=== PATIENT | male | born 1980 | race American Indian/Alaskan Native ===

== ENCOUNTER 2019-03-26 08:43 | Observation (INO) | payer OTHER ==
[2019-03-26 09:27] LABS: Basophils # (Auto) 0.1 K/mm3 (0.0-0.1); Basophils % (Auto) 0.4 % (0.0-1.8); Eosinophils # (Auto) 0.1 K/mm3 (0.0-0.4); Eosinophils % (Auto) 0.4 % (0.0-4.3); Hemoglobin 14.2 gm/dl (11.8-15.2); Lymphocytes # (Auto) 1.2 K/mm3 (1.2-5.4); Lymphocytes % (Auto) 8.4 % (13.4-35.0); Mean Corpuscular HGB Conc 35 % (32-34); Mean Corpuscular Volume 84 fl (84-94); Monocytes # (Auto) 0.6 K/mm3 (0.0-0.8); Monocytes % (Auto) 4.6 % (0.0-7.3); Platelet Count 201 K/mm3 (140-440); Red Blood Count 4.89 M/mm3 (3.65-5.03); Red Cell Distribution Width 13.3 % (13.2-15.2)
[2019-03-26 09:32] LABS: INR 0.97 (0.87-1.13)
[2019-03-26 09:33] LABS: Partial Thromboplastin Time 24.6 Sec. (24.2-36.6)
[2019-03-26 09:45] LABS: Alanine Aminotransferase 35 units/L (7-56); Albumin 4.2 g/dL (3.9-5); BUN/Creatinine Ratio 9; Blood Urea Nitrogen 8 mg/dL (9-20); Calcium 9.3 mg/dL (8.4-10.2); Hemolysis Index 23
[2019-03-26 09:48] LABS: Creatine Kinase MB 2.4 ng/mL (0.0-4.0)
--- NOTE | 2019-03-26 09:53 | XRay Report ---
CHEST 1 VIEW INDICATION: Chest pain. COMPARISON: None FINDINGS: Support devices: None. Heart: Within normal limits. Lungs/Pleura: No acute air space or interstitial disease. Additional findings: None. IMPRESSION: No acute findings. Signer Name: Trace Costa Jr, MD Signed: 03/26/2019 9:49 AM Workstation Name: [id number]
[2019-03-26] MEDS ORDERED: ATIVAN IV ONE (10:32)
--- NOTE | 2019-03-26 11:28 | Emergency Department Report ---
ED Chest Pain HPI - General Chief Complaint: Chest Pain Stated Complaint: CHEST PAIN Time Seen by Provider: 03/26/19 09:16 Source: EMS Mode of arrival: Stretcher Limitations: No Limitations - History of Present Illness Initial Comments: This is a 38-year-old male complaining of chest pain. He states that it began at about 5:30 this morning. He states that it radiates somewhat to his abdomen and feels dull in nature. He admits to smoking marijuana but not cocaine. He states he's had chest pain like this before but did not seek medical attention. He reports no history of cardiovascular disease, hypertension or venous thromboembolism. A chest states that he was somewhat nauseated and sweaty with this chest pain. He is somewhat emotionally labile on my encounter.He is pulled out his IV several times already. MD Complaint: chest pain -: Gradual Onset: during rest Pain Location: substernal Pain Radiation: abdomen Severity: moderate Quality: dull Consistency: constant Improves With: nothing Worsens With: nothing re: nausea, vomting, other (sweating) Other Symptoms: denies: cough, fever, syncope Treatments Prior to Arrival: none Aspirin use within the Past 7 Days: (0) No - Related Data Allergies Allergy/AdvReac Type Severity Reaction Status Date / Time No Known Allergies Allergy Unverified 03/26/19 08:54 Heart Score - HEART Score History: Slightly suspicious EKG: Normal Age: < 45 Risk factors: 1-2 risk factors Troponin: < normal limit HEART Score: 1 - Critical Actions Critical Actions: 0-3 pts:0.9-1.7%risk of adverse cardiac event.Candidate for discharge ED Review of Systems ROS: Stated complaint: CHEST PAIN Other details as noted in HPI Constitutional: denies: chills, fever Eyes: denies: eye pain, eye discharge, vision change ENT: denies: ear pain, throat pain Respiratory: denies: cough, shortness of breath, wheezing Cardiovascular: chest pain. denies: palpitations Endocrine: no symptoms reported Gastrointestinal: abdominal pain, nausea, vomiting. denies: diarrhea Genitourinary: denies: urgency, dysuria Musculoskeletal: denies: back pain, joint swelling, arthralgia Skin: denies: rash, lesions Neurological: denies: headache, weakness, paresthesias Psychiatric: denies: anxiety, depression Hematological/Lymphatic: denies: easy bleeding, easy bruising ED Past Medical Hx - Past Medical History Previous Medical History?: Yes Additional medical history: ptsd - Surgical History Past Surgical History?: No - Social History Smoking Status: Current Every Day Smoker Substance Use Type: Marijuana ED Physical Exam - General Limitations: No Limitations General appearance: alert, in no apparent distress, anxious, other (somewhat sweaty and anxious) - Head Head exam: Present: atraumatic, normocephalic - Eye Eye exam: Present: normal appearance - ENT ENT exam: Present: mucous membranes moist - Neck Neck exam: Present: normal inspection. Absent: tenderness, meningismus - Respiratory Respiratory exam: Present: normal lung sounds bilaterally. Absent: respiratory distress - Cardiovascular Cardiovascular Exam: Present: regular rate, normal rhythm. Absent: systolic murmur, diastolic murmur, rubs, gallop - GI/Abdominal GI/Abdominal exam: Present: soft, normal bowel sounds. Absent: distended, tenderness, guarding, rebound, rigid - Rectal Rectal exam: Present: deferred - Extremities Exam Extremities exam: Present: normal inspection - Back Exam Back exam: Present: normal inspection - Neurological Exam Neurological exam: Present: alert, oriented X3, CN II-XII intact. Absent: motor sensory deficit - Psychiatric Psychiatric exam: Present: agitated, anxious - Skin Skin exam: Present: warm, dry, intact, normal color. Absent: rash ED Course Vital Signs 03/26/19 08:49 Temperature 97.7 F Pulse Rate 80 Respiratory 24 Rate Blood Pressure 150/90 - Reevaluation(s) Reevaluation #1: Thus far nothing diagnostic has turned up in the patient's current workup. I have recommended that he be admitted to the hospital for further care and evaluation. The patient declined this. I explained to him the risks and benefits of hospitalization and further medical screening and treatment. He is declined to remain. He has adequate mental capacity to refuse further care. He will be asked to sign out AMA. 03/26/19 13:24 ED Medical Decision Making - Lab Data Result diagrams: 03/26/19 09:04 03/26/19 09:04 Laboratory Results - last 24 hr 03/26/19 03/26/19 03/26/19 09:04 09:04 09:04 WBC 13.9 H RBC 4.89 Hgb 14.2 Hct 41.0 MCV 84 MCH 29 MCHC 35 H RDW 13.3 Plt Count 201 Lymph % (Auto) 8.4 L [place] % (Auto) 4.6 Eos % (Auto) 0.4 Baso % (Auto) 0.4 Lymph # 1.2 [place] # 0.6 Eos # 0.1 Baso # 0.1 Seg Neutrophils % 86.2 H Seg Neutrophils # 12.0 H PT INR APTT D-Dimer Sodium 142 Potassium 3.5 L Chloride 101.1 Carbon Dioxide 22 Anion Gap 22 BUN 8 L Creatinine 0.9 Estimated GFR > 60 BUN/Creatinine Ratio 9 Glucose 152 H Calcium 9.3 Magnesium Total Bilirubin 0.80 AST 37 ALT 35 Alkaline Phosphatase 73 Total Creatine Kinase 433 H CK-MB (CK-2) 2.4 CK-MB (CK-2) Rel Index 0.5 Troponin T < 0.010 NT-Pro-B Natriuret Pep Total Protein 7.6 Albumin 4.2 Albumin/Globulin Ratio 1.2 03/26/19 03/26/19 03/26/19 09:04 09:04 09:04 WBC RBC Hgb Hct MCV MCH MCHC RDW Plt Count Lymph % (Auto) [place] % (Auto) Eos % (Auto) Baso % (Auto) Lymph # [place] # Eos # Baso # Seg Neutrophils % Seg Neutrophils # PT 12.6 INR 0.97 APTT 24.6 D-Dimer < 135 Sodium Potassium Chloride Carbon Dioxide Anion Gap BUN Creatinine Estimated GFR BUN/Creatinine Ratio Glucose Calcium Magnesium 1.90 Total Bilirubin AST ALT Alkaline Phosphatase Total Creatine Kinase CK-MB (CK-2) CK-MB (CK-2) Rel Index Troponin T NT-Pro-B Natriuret Pep 22.11 Total Protein Albumin Albumin/Globulin Ratio Laboratory Results - last 24 hr 03/26/19 03/26/19 03/26/19 09:04 09:04 09:04 WBC 13.9 H RBC 4.89 Hgb 14.2 Hct 41.0 MCV 84 MCH 29 MCHC 35 H RDW 13.3 Plt Count 201 Lymph % (Auto) 8.4 L [place] % (Auto) 4.6 Eos % (Auto) 0.4 Baso % (Auto) 0.4 Lymph # 1.2 [place] # 0.6 Eos # 0.1 Baso # 0.1 Seg Neutrophils % 86.2 H Seg Neutrophils # 12.0 H PT INR APTT D-Dimer Sodium 142 Potassium 3.5 L Chloride 101.1 Carbon Dioxide 22 Anion Gap 22 BUN 8 L Creatinine 0.9 Estimated GFR > 60 BUN/Creatinine Ratio 9 Glucose 152 H Calcium 9.3 Magnesium Total Bilirubin 0.80 AST 37 ALT 35 Alkaline Phosphatase 73 Total Creatine Kinase 433 H CK-MB (CK-2) 2.4 CK-MB (CK-2) Rel Index 0.5 Troponin T < 0.010 NT-Pro-B Natriuret Pep Total Protein 7.6 Albumin 4.2 Albumin/Globulin Ratio 1.2 Urine Bilirubin Urine RBC (Auto) Urine Opiates Screen Urine Methadone Screen Ur Barbiturates Screen Ur Phencyclidine Scrn Ur Amphetamines Screen U Benzodiazepines Scrn Urine Cocaine Screen 03/26/19 03/26/19 03/26/19 09:04 09:04 09:04 WBC RBC Hgb Hct MCV MCH MCHC RDW Plt Count Lymph % (Auto) [place] % (Auto) Eos % (Auto) Baso % (Auto) Lymph # [place] # Eos # Baso # Seg Neutrophils % Seg Neutrophils # PT 12.6 INR 0.97 APTT 24.6 D-Dimer < 135 Sodium Potassium Chloride Carbon Dioxide Anion Gap BUN Creatinine Estimated GFR BUN/Creatinine Ratio Glucose Calcium Magnesium 1.90 Total Bilirubin AST ALT Alkaline Phosphatase Total Creatine Kinase CK-MB (CK-2) CK-MB (CK-2) Rel Index Troponin T NT-Pro-B Natriuret Pep 22.11 Total Protein Albumin Albumin/Globulin Ratio Urine Bilirubin Urine RBC (Auto) Urine Opiates Screen Urine Methadone Screen Ur Barbiturates Screen Ur Phencyclidine Scrn Ur Amphetamines Screen U Benzodiazepines Scrn Urine Cocaine Screen 03/26/19 03/26/19 12:00 12:00 WBC RBC Hgb Hct MCV MCH MCHC RDW Plt Count Lymph % (Auto) [place] % (Auto) Eos % (Auto) Baso % (Auto) Lymph # [place] # Eos # Baso # Seg Neutrophils % Seg Neutrophils # PT INR APTT D-Dimer Sodium Potassium Chloride Carbon Dioxide Anion Gap BUN Creatinine Estimated GFR BUN/Creatinine Ratio Glucose Calcium Magnesium Total Bilirubin AST ALT Alkaline Phosphatase Total Creatine Kinase CK-MB (CK-2) CK-MB (CK-2) Rel Index Troponin T NT-Pro-B Natriuret Pep Total Protein Albumin Albumin/Globulin Ratio Urine Bilirubin Neg Urine RBC (Auto) 5.0 Urine Opiates Screen Presumptive negative Urine Methadone Screen Presumptive negative Ur Barbiturates Screen Presumptive negative Ur Phencyclidine Scrn Presumptive negative Ur Amphetamines Screen Presumptive negative U Benzodiazepines Scrn Presumptive negative Urine Cocaine Screen Presumptive negative - EKG Data -: EKG Interpreted by Me EKG shows normal: sinus rhythm, axis, intervals, QRS complexes, ST-T waves Rate: normal - EKG Data Interpretation: no acute changes - Radiology Data Radiology results: report reviewed Critical care attestation.: If time is entered above; I have spent that time in minutes in the direct care of this critically ill patient, excluding procedure time. ED Disposition Clinical Impression: Chest pain Qualifiers: Chest pain type: unspecified Qualified Code(s): R07.9 - Chest pain, unspecified Disposition: DC-07 LEFT AGAINST MED ADVICE Is pt being admited?: No Does the pt Need Aspirin: No Condition: Stable Instructions: Chest Pain (ED) Additional Instructions: Return as desired for further workup and evaluation. Referrals: CHAPO MCGRAW MD [Primary Care Provider] - JOSELO Forms: AMA Form Time of Disposition: 13:25
[2019-03-26 12:41] LABS: Amphetamine Screen,Urine PRESUMPTIVE NEGATIVE; Benzodiazepines Screen,Urine PRESUMPTIVE NEGATIVE; Cocaine Screen,Urine PRESUMPTIVE NEGATIVE; Methadone Screen,Urine PRESUMPTIVE NEGATIVE; Opiate Screen,Urine PRESUMPTIVE NEGATIVE
[2019-03-26 12:43] LABS: Bacteria,Urine 1+ /HPF (Negative); Bilirubin,Urine NEG (Negative); Blood,Urine NEG (Negative); Color,Urine Straw (Yellow); Mucus,Urine FEW /HPF; Protein,Urine <15 mg/dL mg/dL (Negative); Urobilinogen,Urine < 2.0 mg/dL (<2.0)
[2019-03-26 13:21] LABS: Cannabinoid Screen,Urine PRESUMPTIVE POSITIVE
[2019-03-26] MEDS ORDERED: ZOFRAN ONE (16:40)
[2019-03-26] MEDS ORDERED: REGLAN ONE (16:46)
[2019-03-26] MEDS ORDERED: ZOFRAN IV PRN ×2 (17:00→21:05)
[2019-03-26] MEDS ORDERED: TYLENOL PO PRN ×2 (17:00→21:05)
[2019-03-26] MEDS ORDERED: DILAUDID IV PRN (17:00)
[2019-03-26] MEDS ORDERED: PHENERGAN PR PRN (17:00)
[2019-03-26] MEDS ORDERED: REGLAN IV PRN (17:00)
[2019-03-26] MEDS ORDERED: SODIUM CHLORIDE FLUSH SYRINGE 10 ML IV PRN ×2 (17:00→21:05)
[2019-03-26] MEDS ORDERED: DILAUDID ONE (18:00)
[2019-03-26] MEDS: D5NS 1,000 ML IV SCH (20:49)
[2019-03-26] MEDS: PEPCID IV SCH (21:01)
[2019-03-26] MEDS: SODIUM CHLORIDE FLUSH SYRINGE 10 ML IV SCH (21:01)
[2019-03-26] MEDS ORDERED: MELATONIN 3 MG PO PRN (21:03)
--- NOTE | 2019-03-26 21:11 | History and Physical Report ---
History of Present Illness Date of examination: 03/26/19 Date of admission: 03/26/19 14:10 Chief complaint: Chest pain since AM History of present illness: 38-year-old male with pmh of PTSD comes in for chest pain. since 530 am. Chest pain is dull in character and radiating to epigastric region.Pain is about 6 on a scale of 1 to 10.Slight diaphoresis present.No SOB or palpitations.No recent travel.No exacerbating or relieving factors. Past Medical History ptsd Htn?? Surgical History No Social History Smoking Status: Current Every Day Smoker Substance Use Type: Marijuana Family History Htn Review of Systems ROS: Stated complaint: CHEST PAIN Other details as noted in HPI Constitutional: denies: chills, fever Eyes: denies: eye pain, eye discharge, vision change ENT: denies: ear pain, throat pain Respiratory: denies: cough, shortness of breath, wheezing Cardiovascular: chest painsince am denies: palpitations Endocrine: no symptoms reported Gastrointestinal: abdominal pain, nausea, vomiting. denies: diarrhea Genitourinary: denies: urgency, dysuria Musculoskeletal: denies: back pain, joint swelling, arthralgia Skin: denies: rash, lesions Neurological: denies: headache, weakness, paresthesias Psychiatric: denies: anxiety, depression Hematological/Lymphatic: denies: easy bleeding, easy bruising Medications and Allergies Allergies Allergy/AdvReac Type Severity Reaction Status Date / Time No Known Allergies Allergy Unverified 03/26/19 08:54 Home Medications Medication Instructions Recorded Confirmed Last Taken Type FLUoxetine HCL [PROzac] 40 mg PO QDAY 03/26/19 03/26/19 Unknown History Melatonin [Melatonin 3MG TAB] 3 mg PO QHS PRN 03/26/19 03/26/19 Unknown History Prazosin [Minipress] 1 mg PO QHS 03/26/19 03/26/19 Unknown History Rizatriptan Benzoate [Maxalt] 10 mg PO PRN 03/26/19 03/26/19 Unknown History Active Meds: Active Medications Acetaminophen (Tylenol) 650 mg PO Q4H PRN PRN Reason: Pain MILD(1-3)/Fever >100.5/INFANTE Famotidine (Pepcid) 20 mg IV BID ALMA Hydromorphone HCl (Dilaudid) 0.5 mg IV Q3H PRN PRN Reason: Pain , Severe (7-10) Last Admin: 03/26/19 18:03 Dose: 0.5 mg Documented by: Dextrose/Sodium Chloride (D5ns) 1,000 mls @ 100 mls/hr IV DIRECT AMLA Last Admin: 03/26/19 20:49 Dose: 100 mls/hr Documented by: Metoclopramide HCl (Reglan) 10 mg IV Q6H PRN PRN Reason: Nausea And Vomiting Last Admin: 03/26/19 17:07 Dose: 10 mg Documented by: Miscellaneous Medication (Melatonin [Melatonin 3mg Tab]) 3 mg PO QHS PRN PRN Reason: Insomnia Miscellaneous Medication (Fluoxetine Hcl [Prozac]) 40 mg PO QDAY ALMA Ondansetron HCl (Zofran) 4 mg IV Q3H PRN PRN Reason: Nausea And Vomiting Last Admin: 03/26/19 17:06 Dose: 4 mg Documented by: Prazosin HCl (Minipress) 1 mg PO QHS ALMA Promethazine HCl (Phenergan) 25 mg OH Q6H PRN PRN Reason: N/V IF NPO AND NO IV ACCESS Sodium Chloride (Sodium Chloride Flush Syringe 10 Ml) 10 ml IV BID ALMA Sodium Chloride (Sodium Chloride Flush Syringe 10 Ml) 10 ml IV PRN PRN PRN Reason: LINE FLUSH Exam - Constitutional Vitals: Temp Pulse Resp BP Pulse Ox 98.2 F 70 18 115/59 98 03/26/19 18:36 03/26/19 18:36 03/26/19 20:07 03/26/19 18:36 03/26/19 18:36 General appearance: Present: no acute distress, well-nourished - EENT Eyes: Present: PERRL ENT: hearing intact, clear oral mucosa - Neck Neck: Present: supple, normal ROM - Respiratory Respiratory effort: normal Respiratory: bilateral: CTA - Cardiovascular Heart rate: 69 Rhythm: regular Heart Sounds: Present: S1 & S2. Absent: rub, click - Extremities Extremities: no ischemia, pulses intact, pulses symmetrical, No edema Extremity abnormal: other Peripheral Pulses: within normal limits - Abdominal General gastrointestinal: Present: soft, non-tender, non-distended, normal bowel sounds Male genitourinary: Present: normal - Rectal Rectal Exam: deferred - Integumentary Integumentary: Present: clear, warm, dry - Musculoskeletal Musculoskeletal: gait normal, strength equal bilaterally - Psychiatric Psychiatric: appropriate mood/affect, intact judgment & insight - Neurologic Neurologic: CNII-XII intact, moves all extremities - Allied Health Allied health notes reviewed: nursing, case management Results - Labs CBC & Chem 7: 03/26/19 09:04 03/26/19 09:04 Labs: Laboratory Last Values WBC 13.9 K/mm3 (4.5-11.0) H 03/26/19 09:04 RBC 4.89 M/mm3 (3.65-5.03) 03/26/19 09:04 Hgb 14.2 gm/dl (11.8-15.2) 03/26/19 09:04 Hct 41.0 % (35.5-45.6) 03/26/19 09:04 MCV 84 fl (84-94) 03/26/19 09:04 MCH 29 pg (28-32) 03/26/19 09:04 MCHC 35 % (32-34) H 03/26/19 09:04 RDW 13.3 % (13.2-15.2) 03/26/19 09:04 Plt Count 201 K/mm3 (140-440) 03/26/19 09:04 Lymph % (Auto) 8.4 % (13.4-35.0) L 03/26/19 09:04 [place] % (Auto) 4.6 % (0.0-7.3) 03/26/19 09:04 Eos % (Auto) 0.4 % (0.0-4.3) 03/26/19 09:04 Baso % (Auto) 0.4 % (0.0-1.8) 03/26/19 09:04 Lymph # 1.2 K/mm3 (1.2-5.4) 03/26/19 09:04 [place] # 0.6 K/mm3 (0.0-0.8) 03/26/19 09:04 Eos # 0.1 K/mm3 (0.0-0.4) 03/26/19 09:04 Baso # 0.1 K/mm3 (0.0-0.1) 03/26/19 09:04 Seg Neutrophils % 86.2 % (40.0-70.0) H 03/26/19 09:04 Seg Neutrophils # 12.0 K/mm3 (1.8-7.7) H 03/26/19 09:04 PT 12.6 Sec. (12.2-14.9) 03/26/19 09:04 INR 0.97 (0.87-1.13) 03/26/19 09:04 APTT 24.6 Sec. (24.2-36.6) 03/26/19 09:04 < 135 ng/mlDDU (0-234) 03/26/19 09:04 Sodium 142 mmol/L (137-145) 03/26/19 09:04 Potassium 3.5 mmol/L (3.6-5.0) L 03/26/19 09:04 Chloride 101.1 mmol/L (98-107) 03/26/19 09:04 Carbon Dioxide 22 mmol/L (22-30) 03/26/19 09:04 22 mmol/L 03/26/19 09:04 BUN 8 mg/dL (9-20) L 03/26/19 09:04 0.9 mg/dL (0.8-1.5) 03/26/19 09:04 Estimated GFR > 60 ml/min 03/26/19 09:04 9 % 03/26/19 09:04 Glucose 152 mg/dL (75-100) H 03/26/19 09:04 Calcium 9.3 mg/dL (8.4-10.2) 03/26/19 09:04 Magnesium 1.90 mg/dL (1.7-2.3) 03/26/19 09:04 0.80 mg/dL (0.1-1.2) 03/26/19 09:04 AST 37 units/L (5-40) 03/26/19 09:04 ALT 35 units/L (7-56) 03/26/19 09:04 73 units/L (35-129) 03/26/19 09:04 433 units/L (55-170) H 03/26/19 09:04 CK-MB (CK-2) 2.4 ng/mL (0.0-4.0) 03/26/19 09:04 CK-MB (CK-2) Rel Index 0.5 (0-4) 03/26/19 09:04 < 0.010 ng/mL (0.00-0.029) 03/26/19 09:04 NT-Pro-B Natriuret Pep 22.11 pg/mL (0-450) 03/26/19 09:04 7.6 g/dL (6.3-8.2) 03/26/19 09:04 4.2 g/dL (3.9-5) 03/26/19 09:04 1.2 % 03/26/19 09:04 Straw (Yellow) 03/26/19 12:00 Clear (Clear) 03/26/19 12:00 9.0 (5.0-7.0) H 03/26/19 12:00 Ur Specific [place] 1.012 (1.003-1.030) 03/26/19 12:00 <15 mg/dl mg/dL (Negative) 03/26/19 12:00 50 mg/dL (Negative) 03/26/19 12:00 20 mg/dL (Negative) 03/26/19 12:00 Neg (Negative) 03/26/19 12:00 Neg (Negative) 03/26/19 12:00 Neg (Negative) 03/26/19 12:00 < 2.0 mg/dL (<2.0) 03/26/19 12:00 Ur Leukocyte Esterase Neg (Negative) 03/26/19 12:00 1.0 /HPF (0.0-6.0) 03/26/19 12:00 5.0 /HPF (0.0-6.0) 03/26/19 12:00 1+ /HPF (Negative) 03/26/19 12:00 Few /HPF 03/26/19 12:00 Presumptive negative 03/26/19 12:00 Presumptive negative 03/26/19 12:00 Ur Barbiturates Screen Presumptive negative 03/26/19 12:00 Ur Phencyclidine Scrn Presumptive negative 03/26/19 12:00 Ur Amphetamines Screen Presumptive negative 03/26/19 12:00 U Benzodiazepines Scrn Presumptive negative 03/26/19 12:00 Presumptive negative 03/26/19 12:00 U Marijuana (THC) Screen Presumptive positive 03/26/19 12:00 Disclamer 03/26/19 12:00 Short CBC 03/26/19 Range/Units 09:04 WBC 13.9 H (4.5-11.0) K/mm3 Hgb 14.2 (11.8-15.2) gm/dl Hct 41.0 (35.5-45.6) % Plt Count 201 (140-440) K/mm3 [facility] 03/26/19 09:04 Sodium 142 Potassium 3.5 L Chloride 101.1 Carbon Dioxide 22 BUN 8 L Creatinine 0.9 Glucose 152 H Calcium 9.3 Cardiac Enzymes 03/26/19 03/26/19 03/26/19 Range/Units 09:04 09:04 21:32 Total Creatine Kinase 433 H (55-170) units/L CK-MB (CK-2) 2.4 (0.0-4.0) ng/mL Troponin T < 0.010 < 0.010 (0.00-0.029) ng/mL Liver Function 03/26/19 Range/Units 09:04 Total Bilirubin 0.80 (0.1-1.2) mg/dL AST 37 (5-40) units/L ALT 35 (7-56) units/L Alkaline Phosphatase 73 (35-129) units/L Albumin 4.2 (3.9-5) g/dL Urine 03/26/19 Range/Units 12:00 Urine Color Straw (Yellow) Urine pH 9.0 H (5.0-7.0) Ur Specific [place] 1.012 (1.003-1.030) Urine Protein <15 mg/dl (Negative) mg/dL Urine Glucose (UA) 50 (Negative) mg/dL Short CBC 03/26/19 Range/Units 09:04 WBC 13.9 H (4.5-11.0) K/mm3 Hgb 14.2 (11.8-15.2) gm/dl Hct 41.0 (35.5-45.6) % Plt Count 201 (140-440) K/mm3 [facility] 03/26/19 09:04 Sodium 142 Potassium 3.5 L Chloride 101.1 Carbon Dioxide 22 BUN 8 L Creatinine 0.9 Glucose 152 H Calcium 9.3 Cardiac Enzymes 03/26/19 03/26/19 03/26/19 Range/Units 09:04 09:04 21:32 Total Creatine Kinase 433 H (55-170) units/L CK-MB (CK-2) 2.4 (0.0-4.0) ng/mL Troponin T < 0.010 < 0.010 (0.00-0.029) ng/mL Liver Function 03/26/19 Range/Units 09:04 Total Bilirubin 0.80 (0.1-1.2) mg/dL AST 37 (5-40) units/L ALT 35 (7-56) units/L Alkaline Phosphatase 73 (35-129) units/L Albumin 4.2 (3.9-5) g/dL Urine 03/26/19 Range/Units 12:00 Urine Color Straw (Yellow) Urine pH 9.0 H (5.0-7.0) Ur Specific [place] 1.012 (1.003-1.030) Urine Protein <15 mg/dl (Negative) mg/dL Urine Glucose (UA) 50 (Negative) mg/dL - Imaging and Cardiology EKG: report reviewed (69/min NSR) Chest x-ray: report reviewed (NAF) Assessment and Plan Advance Directives: Yes (Full code) VTE prophylaxis?: Chemical Plan of care discussed with patient/family: Yes - Patient Problems (1) Chest pain Current Visit: Yes Status: Acute Qualifiers: Chest pain type: unspecified Qualified Code(s): R07.9 - Chest pain, unspecified Plan to address problem: Chest pain r/o SC protocol. Lexiscan in AM Serial Troponins Diff diagnosis of Costochondritis and Gerd to be ruled out No chest wall tenderness (2) HTN (hypertension) Current Visit: Yes Status: Chronic Qualifiers: Hypertension type: essential hypertension Qualified Code(s): I10 - Essential (primary) hypertension Plan to address problem: Patient initiated on Losartan (3) PTSD (post-traumatic stress disorder) Current Visit: Yes Status: Chronic Plan to address problem: Cont Prazosin (4) Nicotine dependence with current use Current Visit: Yes Status: Chronic Plan to address problem: Counselled for 10 minutes Nicoderm patch offered (5) Tetrahydrocannabinol (THC) use disorder, moderate, dependence Current Visit: Yes Status: Chronic Plan to address problem: Counselled (6) DVT prophylaxis Current Visit: Yes Status: Acute Plan to address problem: On lovenox and GI prophylaxis
[2019-03-26] MEDS ORDERED: NON-FORMULARY (Fluoxetine Hcl [Prozac] 40 MG) PO SCH (21:15)
[2019-03-26] MEDS ORDERED: MELATONIN PO PRN (21:19)
[2019-03-26] MEDS ORDERED: SODIUM CHLORIDE FLUSH SYRINGE 10 ML IV SCH (22:00)
[2019-03-26] MEDS ORDERED: MINIPRESS PO SCH (22:00)
[2019-03-26] MEDS: COZAAR PO SCH (22:42)
[2019-03-26] MEDS: PROzac PO SCH (22:42)
[2019-03-27] MEDS: D5NS 1,000 ML IV SCH (05:14)
[2019-03-27 05:39] LABS: Basophils % (Auto) 0.3 % (0.0-1.8); Eosinophils # (Auto) 0.1 K/mm3 (0.0-0.4); Eosinophils % (Auto) 0.7 % (0.0-4.3); Hematocrit 40.4 % (35.5-45.6); Hemoglobin 13.9 gm/dl (11.8-15.2); Lymphocytes # (Auto) 1.3 K/mm3 (1.2-5.4); Lymphocytes % (Auto) 15.4 % (13.4-35.0); Mean Corpuscular HGB Conc 34 % (32-34); Mean Corpuscular Volume 86 fl (84-94); Monocytes # (Auto) 0.7 K/mm3 (0.0-0.8); Monocytes % (Auto) 8.2 % (0.0-7.3); Platelet Count 187 K/mm3 (140-440); Red Blood Count 4.72 M/mm3 (3.65-5.03)
[2019-03-27 06:12] LABS: Alanine Aminotransferase 25 units/L (7-56); Albumin 3.9 g/dL (3.9-5); BUN/Creatinine Ratio 11; Blood Urea Nitrogen 9 mg/dL (9-20); Calcium 8.6 mg/dL (8.4-10.2); Hemolysis Index 2
[2019-03-27] MEDS ORDERED: LEXISCAN IV ONE ×2 (08:35→08:38)
[2019-03-27] MEDS ORDERED: HABITROL TD SCH (10:00)
[2019-03-27] MEDS: SODIUM CHLORIDE FLUSH SYRINGE 10 ML IV SCH (10:00)
[2019-03-27] MEDS: COZAAR PO SCH (11:02)
[2019-03-27] MEDS: PROzac PO SCH (11:02)
[2019-03-27] MEDS: PEPCID IV SCH (11:03)
[2019-03-27] MEDS ORDERED: K-DUR PO ONE (15:21)
--- NOTE | 2019-03-27 15:23 | Discharge Summary ---
Providers - Providers Date of Admission: 03/26/19 14:10 Date of discharge: 03/27/19 Attending physician: LOUANN FISHER Primary care physician: CHAPO MCGRAW Hospitalization Condition: Stable Pertinent studies: CXR MPI stress test Hospital course: Discharge diagnosis: (1) Chest pain, possible GRD Current Visit: Yes Status: Acute Qualifiers: Chest pain type: unspecified Qualified Code(s): R07.9 - Chest pain, u nspecified Plan to address problem: Chest pain r/o RI protocol. Lexiscan in AM Serial Troponins Diff diagnosis of Costochondritis and Gerd to be ruled out No chest wall tenderness (2) HTN (hypertension) Current Visit: Yes Status: Chronic Qualifiers: Hypertension type: essential hypertension Qualified Code(s): I10 - Essential (primary) hypertension Plan to address problem: Patient initiated on Losartan (3) PTSD (post-traumatic stress disorder) Current Visit: Yes Status: Chronic Plan to address problem: Cont Prazosin (4) Nicotine dependence with current use Current Visit: Yes Status: Chronic Plan to address problem: Counselled for 10 minutes Nicoderm patch offered (5) Tetrahydrocannabinol (THC) use disorder, moderate, dependence Current Visit: Yes Status: Chronic Plan to address problem: Counselled (6) DVT prophylaxis Current Visit: Yes Status: Acute Plan to address problem: On lovenox and GI prophylaxis Disposition: DC-01 TO HOME OR SELFCARE Time spent for discharge: 34 minutes Core Measure Documentation - Palliative Care Palliative Care/ Comfort Measures: Not Applicable - Core Measures Any of the following diagnoses?: none Exam - Constitutional Vitals: Temp Pulse Resp BP Pulse Ox 98.0 F 80 15 133/88 100 03/27/19 12:27 03/27/19 12:27 03/27/19 12:27 03/27/19 12:27 03/27/19 12:27 General appearance: Present: no acute distress, well-nourished - EENT Eyes: Present: PERRL ENT: hearing intact, clear oral mucosa - Neck Neck: Present: supple, normal ROM - Respiratory Respiratory effort: normal Respiratory: bilateral: CTA - Cardiovascular Heart Sounds: Present: S1 & S2. Absent: rub, click - Extremities Extremities: pulses symmetrical, No edema Peripheral Pulses: within normal limits - Abdominal General gastrointestinal: Present: soft, non-tender, non-distended, normal bowel sounds - Integumentary Integumentary: Present: clear, warm, dry - Musculoskeletal Musculoskeletal: gait normal, strength equal bilaterally - Psychiatric Psychiatric: appropriate mood/affect, intact judgment & insight - Neurologic Neurologic: CNII-XII intact, moves all extremities Plan Activity: advance as tolerated Weight Bearing Status: Weight Bear as Tolerated Diet: low fat, low salt Follow up with: CHAPO MCGRAW MD [Primary Care Provider] - JOSELO Prescriptions: Losartan [Cozaar] 50 mg PO QDAY #30 tablet Potassium Chloride [K-Dur] 20 meq PO BID #5 tab Pantoprazole [Protonix] 40 mg PO QDAY #30 tablet
[2019-03-27 16:37] VITALS: BP 134/93
== END 2019-03-27 18:20 | disposition home or self-care (01) ==
LOC: ED 08:43 → INTOOBSV 14:10 → 3A 14:10
PROVIDERS: ADMIT Internal Medicine; ATTEND Internal Medicine
DX: R07.89 Other chest pain (principal); I10 Essential (primary) hypertension; F43.10 Post-traumatic stress disorder, unspecified; F17.210 Nicotine dependence, cigarettes, uncomplicated; F19.229 Other psychoactive substance dependence with intoxication, unspecified
CPT/HCPCS: 36415; 71045; 78452; 80053; 80307; 81001; 82550; 82553; 83036; 83735; 83880; 84484; 85025; 85379; 85610; 85730; 93005; 93010; 93017; 96374; 96375; 96376; 99284; A9502; G0378; J1170; J2060; J2405; J2765; J7042; J2785